=== PATIENT | male | born 1980 | race Caucasian/White ===

== ENCOUNTER 2021-08-25 15:44 | Emergency (ER) | payer MEDICAID ==
[~2021-08-25] VITALS: Ht 177.8 cm; Wt 70.0 kg
[2021-08-25 20:04] VITALS: BP 138/66
[2021-08-26] MEDS ORDERED: OLAN5TAB3 PO (05:58)
[2021-08-26] MEDS ORDERED: FAMO40TA70 MT (11:10)
== END 2021-08-25 21:57 | disposition home or self-care (01) ==
LOC: ER 15:44
DX: E86.0 Dehydration (principal); F17.210 Nicotine dependence, cigarettes, uncomplicated; Z86.59 Personal history of other mental and behavioral disorders
CPT/HCPCS: 99283

== ENCOUNTER 2021-08-25 22:24 | Emergency (ER) | payer MEDICAID, MEDICARE ==
[~2021-08-25] VITALS: Ht 175.3 cm; Wt 78.0 kg
[2021-08-25 22:30] VITALS: BP 117/67
[2021-08-26] MEDS ORDERED: OLAN5TAB3 PO (05:58)
[2021-08-26] MEDS ORDERED: OLANZAPINE 10 MG/VIAL IM ONE (06:00)
[2021-08-26] MEDS ORDERED: FAMO40TA70 MT (11:10)
== END 2021-08-26 06:28 | disposition home or self-care (01) ==
LOC: ER 22:33
DX: F29 Unspecified psychosis not due to a substance or known physiological condition (principal)
CPT/HCPCS: 99281

== ENCOUNTER 2021-08-26 07:23 | Emergency (ER) | payer MEDICAID, MEDICARE ==
[~2021-08-26] VITALS: Ht 177.8 cm; Wt 78.0 kg
[~2021-08-26 07:23] MED LIST: OLAN5TAB3 PO
[2021-08-26 07:30] VITALS: BP 103/62
[2021-08-26 10:11] LABS: BASOPHILS % 0.4 % (0.0-2.0); EOSINOPHILS % 4.1 % (0.0-5.0); HEMATOCRIT. 39.9 % (42.0-52.0); HEMOGLOBIN. 13.4 g/dL (14.0-18.0); LYMPHOCYTES % 29.9 % (20.0-50.0); MEAN CORPUSCULAR HEMOGLOBIN 28.7 pg (28.0-32.0); MEAN CORPUSCULAR VOLUME 85.7 fL (80.0-94.0); NEUTROPHILS % 56.6 % (40.0-76.0); PLATELET 285 x1000/uL (130-400); RED BLOOD CELL COUNT 4.65 mill/uL (4.7-6.1); RED CELL DISTRIBUTION WIDTH 14.2 % (11.6-14.6)
[2021-08-26 10:17] LABS: CHLORIDE 108 mEq/L (98-107)
[2021-08-26 10:26] LABS: ETHANOL BLOOD < 10 mg/dL
[2021-08-26 10:27] LABS: PHOSPHORUS 3.3 mg/dL (2.5-4.9)
[2021-08-26 10:41] LABS: T4 FREE 0.79 ng/dL (0.76-1.46)
[2021-08-26] MEDS ORDERED: FAMO40TA70 MT (11:10)
== END 2021-08-26 16:10 | disposition home or self-care (01) ==
LOC: ER 08:09
DX: R07.89 Other chest pain (principal); F15.10 Other stimulant abuse, uncomplicated
CPT/HCPCS: 36415; 71045; 80053; 80320; 83735; 83880; 84100; 84439; 84443; 84484; 85025; 93005; 99285; G0480